=== PATIENT | female | born 1950 | race Caucasian/White ===

== ENCOUNTER → 2016-12-14 | Day surgery (SDC) | payer MEDICARE, BC ==
[~2016-12-14] MED LIST: Lactated Ringers 1,000 ML IV SCH; Propofol 200 MG/20 ML SDV IV ONE
[2016-12-14 12:11] VITALS: BP 134/82
--- NOTE | 2016-12-17 07:49 | OR ---
DATE OF OPERATION: 12/14/2016 PREOPERATIVE DIAGNOSIS: FAMILY HISTORY OF COLON CANCER. POSTOPERATIVE DIAGNOSIS: FAMILY HISTORY OF COLON CANCER. SURGEON: Fernando Zelaya MD PROCEDURE: FULL-LENGTH COLONOSCOPY ANESTHESIA: HELPDESK ADMINISTRATOR due to anxiety. COMPLICATIONS: None. SPECIMEN: None. FINDINGS: 1. Full-length colonoscopy. 2. Mild sigmoid diverticulosis. RECOMMENDATIONS: Follow up colonoscopy every 5 years. INDICATIONS: The patient has a family history of colon cancer in her brother. DESCRIPTION OF PROCEDURE: The patient was prepped and draped, placed in the left lateral decubitus position. A lubricated Olympus colonoscope was inserted and easily advanced to the cecum. Direct visualization of the ileocecal valve and appendiceal orifice was accomplished. Bowel prep was fine. Upon withdrawal of the scope throughout the entire length of the colon, I found no signs of any polyps, mass, ulceration, or bleeding sites. No vascular abnormalities or signs of colitis. The patient does have scattered diverticula in the mid to distal sigmoid colon, mild in severity. No inflammatory changes seen. The rectal vault was benign. Retroflexion scope in the rectum showed no anal lesions. Air was then suctioned. Scope removed without complication. CARTER/BOYD /[id number]
== END ==
LOC: CC.SDS 10:30
PROVIDERS: ATTEND Family Medicine
DX: Z12.11 Encounter for screening for malignant neoplasm of colon (principal); Z80.0 Family history of malignant neoplasm of digestive organs; K57.30 Diverticulosis of large intestine without perforation or abscess without bleeding; G43.909 Migraine, unspecified, not intractable, without status migrainosus; E78.5 Hyperlipidemia, unspecified; G47.00 Insomnia, unspecified; E55.9 Vitamin D deficiency, unspecified; M19.90 Unspecified osteoarthritis, unspecified site; R35.1 Nocturia; Z79.82 Long term (current) use of aspirin; Z79.899 Other long term (current) drug therapy; Z98.890 Other specified postprocedural states
CPT/HCPCS: G0105; J2704; J7120; 00810